=== PATIENT | female | born 1950 | race Caucasian/White ===

== ENCOUNTER 2020-04-07 15:19 | Emergency (ER) | payer OTHER ==
[~2020-04-07] VITALS: Ht 167.6 cm; Wt 68.0 kg
[~2020-04-07 15:19] MED LIST: FLUO10 PO; INSUASPI SC; LEVEMIR100 UNIT/1 SC; LORA.5 PO; MULVITMIND PO
[2020-04-07] MEDS ORDERED: METF500 PO (15:34)
[2020-04-07] MEDS ORDERED: Percocet 5-3251 EACH PO (17:22)
== END 2020-04-07 18:12 | disposition home or self-care (01) ==
LOC: ER 15:19
DX: S52.502A Unspecified fracture of the lower end of left radius, initial encounter for closed fracture (principal); S52.512A Displaced fracture of left radial styloid process, initial encounter for closed fracture; E11.9 Type 2 diabetes mellitus without complications; Z79.4 Long term (current) use of insulin; Z88.0 Allergy status to penicillin; Z88.2 Allergy status to sulfonamides; Z79.899 Other long term (current) drug therapy; Z87.891 Personal history of nicotine dependence; W23.0XXA Caught, crushed, jammed, or pinched between moving objects, initial encounter
CPT/HCPCS: 25605; 73100; 73110; 99283-25; A9270

== ENCOUNTER 2020-04-11 07:41 | Day surgery (SDC) | payer OTHER ==
[~2020-04-11] VITALS: Ht 167.6 cm; Wt 66.3 kg
[~2020-04-11 07:41] MED LIST changes: +METF500 PO; +Percocet 5-3251 EACH PO
--- NOTE | 2020-04-11 09:14 | NUR ---
04/11/20 0914 AVRIL LEON Philippe NOTED AT 302, DR. OVIEDO AND NOTIFIED, VERBAL ORDER OBTAINED BY DR. LUCIO FOR 5 UNITS HUMULIN R SUB Q X1, MEDICATION ADMINISTERED PER ORDERS
--- NOTE | 2020-04-11 10:06 | NUR ---
04/11/20 1006 Frannie Marques CHEM BG AT [address] LUCIO AWARE. NO ACTION TAKEN AT THIS TIME.
== END 2020-04-11 12:48 | disposition home or self-care (01) ==
LOC: ORSCSDS 07:41
PROVIDERS: Orthopaedic Surgery
PROC: 01N50ZZ Release Median Nerve, Open Approach (ICD-10-PCS; principal; 2020-04-11 09:15)
PROC: 0PSJ04Z Reposition Left Radius with Internal Fixation Device, Open Approach (ICD-10-PCS; principal; 2020-04-11 09:15)
DX: S52.572A Other intraarticular fracture of lower end of left radius, initial encounter for closed fracture (principal); G56.02 Carpal tunnel syndrome, left upper limb; E11.9 Type 2 diabetes mellitus without complications; E03.9 Hypothyroidism, unspecified; Z79.4 Long term (current) use of insulin; Z79.84 Long term (current) use of oral hypoglycemic drugs; Z79.899 Other long term (current) drug therapy
CPT/HCPCS: 82947; A9270; C1713; J0690; J1815; J2250; J2370; J2405; J2704; J3010; J7120

== ENCOUNTER 2021-01-09 09:21 | Day surgery (SDC) | payer OTHER ==
[~2021-01-09] VITALS: Ht 167.6 cm; Wt 64.2 kg
--- NOTE | 2021-01-09 09:40 | NUR ---
01/09/21 0940 Ashlyn Bangura TETRACAINE IN RIGHT EYE AT 0928 AND PLEDGET APPLIED IN AT 0930
[2021-01-09] MEDS ORDERED: LEVSOD25 PO (09:44)
[2021-01-17] MEDS ORDERED: NOVOLOG100 UNIT/3 (07:54)
[2021-01-17] MEDS ORDERED: Voltaren100 GM TOP (07:54)
[2021-01-17] MEDS ORDERED: INSULANI SC (07:54)
[2021-01-17] MEDS ORDERED: MELO7.5 PO (07:55)
== END 2021-01-09 11:03 | disposition home or self-care (01) ==
LOC: ORSCSDS 09:21
PROVIDERS: Ophthalmology
PROC: 08RJ3JZ Replacement of Right Lens with Synthetic Substitute, Percutaneous Approach (ICD-10-PCS; principal; 2021-01-09 12:15)
DX: H25.11 Age-related nuclear cataract, right eye (principal); E11.9 Type 2 diabetes mellitus without complications; F41.8 Other specified anxiety disorders; Z87.891 Personal history of nicotine dependence; B19.20 Unspecified viral hepatitis C without hepatic coma; K21.9 Gastro-esophageal reflux disease without esophagitis; Z79.4 Long term (current) use of insulin; Z79.899 Other long term (current) drug therapy
CPT/HCPCS: 82947; J2001; J2250; J3010; J3301; J7040; V2632

== ENCOUNTER 2021-01-23 11:28 | Day surgery (SDC) | payer OTHER ==
[~2021-01-23] VITALS: Ht 167.6 cm; Wt 63.7 kg
[~2021-01-23 11:28] MED LIST changes: +INSULANI SC; +LEVSOD25 PO; +MELO7.5 PO; +NOVOLOG100 UNIT/3; +Voltaren100 GM TOP
--- NOTE | 2021-01-23 13:25 | NUR ---
01/23/21 7920 VALENTÍN SALAZAR DID VERY WELL. VERY NICE AND POLITE LADY.
== END 2021-01-23 13:00 | disposition home or self-care (01) ==
LOC: ORSCSDS 11:28
PROVIDERS: Ophthalmology
PROC: 08RK3JZ Replacement of Left Lens with Synthetic Substitute, Percutaneous Approach (ICD-10-PCS; principal; 2021-01-23 13:00)
DX: H25.12 Age-related nuclear cataract, left eye (principal); K21.9 Gastro-esophageal reflux disease without esophagitis; E11.9 Type 2 diabetes mellitus without complications; F41.8 Other specified anxiety disorders; Z87.891 Personal history of nicotine dependence; Z79.84 Long term (current) use of oral hypoglycemic drugs; Z79.899 Other long term (current) drug therapy
CPT/HCPCS: 82947; J2001; J2250; J3010; J3301; J7040; V2632

== ENCOUNTER 2021-09-11 09:33 | Emergency (ER) | payer OTHER ==
[~2021-09-11] VITALS: Ht 167.6 cm; Wt 66.2 kg
[2021-09-11 10:36] LABS: BASOPHILS ABSOLUTE AUTO 0.01 K/mm3 (0.00-0.23); BASOPHILS PERCENT AUTO 0 % (0-2); EOSINOPHILS ABSOLUTE AUTO 0.05 K/mm3 (0.00-0.68); EOSINOPHILS PERCENT AUTO 2 % (0-6); Hematocrit 28.3 % (33.0-51.0); Hemoglobin 9.5 g/dL (11.5-16.0); Mean Corpuscular HGB 31.5 pg (26.0-34.0); Mean Corpuscular HGB Conc 33.6 g/dL (31.5-36.5); Mean Corpuscular Volume 94 fL (80-100); Mean Platelet Volume 10.6 fL (9.1-12.4); Platelet Count 107 K/mm3 (150-400); RDW Coefficient Variation 12.8 % (11.7-14.2); RDW Standard Deviation 41.5 fL (35.1-46.3); Red Blood Cell Count 3.02 M/mm3 (3.80-5.20); White Blood Cell Count 2.58 K/mm3 (4.00-11.30)
[2021-09-11 11:01] LABS: Alanine Aminotransfer (ALT/SGP 33 U/L (12-78); Albumin, Blood 2.7 g/dL (3.4-5.0); Albumin/Globulin Ratio 0.7 (0.8-1.8); Alk Phos 114 U/L (50-136); Anion Gap 7 mmol/L (6-16); Aspartate Aminotrans (AST/SGOT 34 U/L (12-37); Bilirubin, Total 0.6 mg/dL (0.1-1.0); Blood Urea Nitrogen 12 mg/dL (8-24); Bun/Creatinine Ratio 16.2 (12.0-20.0); CO2, Blood 25 mmol/L (21-32); Calcium, Blood 8.4 mg/dL (8.5-10.1); Chloride, Blood 101 mmol/L (98-108); Creatinine, Blood 0.74 mg/dL (0.40-1.00); Globulin, Blood 4.1 g/dL (2.2-4.0); Glomerular Filtration Rate >60 (60-); Glucose, Blood 253 mg/dL (70-99); IMMATURE GRAN ABSOLUTE AUTO 0.03 K/mm3 (0.00-0.10); IMMATURE GRAN PERCENT AUTO 1 % (0-1); LYMPHOCYTES ABSOLUTE AUTO 0.53 K/mm3 (0.84-5.20); LYMPHOCYTES PERCENT AUTO 21 % (21-46); MONOCYTES ABSOLUTE AUTO 1.46 K/mm3 (0.16-1.47); MONOCYTES PERCENT AUTO 57 % (4-13); NEUTROPHILS PERCENT AUTO 19 % (41-73); Potassium, Blood 4.2 mmol/L (3.5-5.5); Sodium, Blood 133 mmol/L (136-145); Total Protein, Blood 6.8 g/dL (6.4-8.2)
[2021-09-11] MEDS ORDERED: LOSA25 PO (11:38)
[2021-09-11] MEDS ORDERED: ATOR10 PO (11:39)
[2021-09-11] MEDS ORDERED: VIT1CAPS12 (11:39)
[2021-09-11 16:46] LABS: Influenza A, PCR NEGATIVE (NEGATIVE); Influenza B, PCR NEGATIVE (NEGATIVE); Resp Syncytial Virus, PCR NEGATIVE (NEGATIVE); SARS-Cov-2 (COVID-19) PCR, MMC NEGATIVE (NEGATIVE)
== END 2021-09-11 15:41 | disposition home or self-care (01) ==
LOC: ER 09:33
PROVIDERS: Emergency Medicine; Physician Assistant
DX: R55 Syncope and collapse (principal); S41.111A Laceration without foreign body of right upper arm, initial encounter; K92.2 Gastrointestinal hemorrhage, unspecified; D64.9 Anemia, unspecified; W10.9XXA Fall (on) (from) unspecified stairs and steps, initial encounter; Z88.0 Allergy status to penicillin; Z88.8 Allergy status to other drugs, medicaments and biological substances; Z88.2 Allergy status to sulfonamides; Z79.899 Other long term (current) drug therapy; Z79.4 Long term (current) use of insulin; Z79.84 Long term (current) use of oral hypoglycemic drugs; Z87.891 Personal history of nicotine dependence
CPT/HCPCS: 0241U; 36415; 70450; 80053; 84484; 85025; 86850; 86900; 86901; 93005; 93010; 96374; 99285-25; C9113

== ENCOUNTER 2021-09-29 18:29 | Observation (INO) | payer OTHER ==
[~2021-09-29] VITALS: Ht 167.6 cm; Wt 65.2 kg
[~2021-09-29 18:29] MED LIST changes: -BENADRYL25 M1 PO; -HARVONI 90-4001 EAC1 PO; -PANT20 PO
[2021-09-29 19:05] LABS: Hemoglobin 7.5 g/dL (11.5-16.0); Mean Platelet Volume 9.9 fL (9.1-12.4); Platelet Count 120 K/mm3 (150-400); White Blood Cell Count 6.37 K/mm3 (4.00-11.30)
[2021-09-29 19:38] LABS: Alanine Aminotransfer (ALT/SGP 17 U/L (12-78); Albumin, Blood 2.1 g/dL (3.4-5.0); Albumin/Globulin Ratio 0.3 (0.8-1.8); Alk Phos 79 U/L (50-136); Anion Gap 5 mmol/L (6-16); Aspartate Aminotrans (AST/SGOT 31 U/L (12-37); Bilirubin, Total 1.1 mg/dL (0.1-1.0); Blood Urea Nitrogen 15 mg/dL (8-24); Bun/Creatinine Ratio 18.3 (12.0-20.0); CO2, Blood 23 mmol/L (21-32); Calcium, Blood 7.9 mg/dL (8.5-10.1); Chloride, Blood 99 mmol/L (98-108); Creatinine, Blood 0.82 mg/dL (0.40-1.00); Globulin, Blood 6.7 g/dL (2.2-4.0); Glomerular Filtration Rate >60 (60-); Glucose, Blood 120 mg/dL (70-99); Potassium, Blood 4.5 mmol/L (3.5-5.5); Sodium, Blood 127 mmol/L (136-145); Total Protein, Blood 8.8 g/dL (6.4-8.2)
[2021-09-29 19:45] LABS: Hematocrit 21.2 % (33.0-51.0); IMMATURE GRAN ABSOLUTE AUTO 0.58 K/mm3 (0.00-0.10); IMMATURE GRAN PERCENT AUTO 9 % (0-1); Mean Corpuscular HGB 35.5 pg (26.0-34.0); Mean Corpuscular HGB Conc 35.4 g/dL (31.5-36.5); Mean Corpuscular Volume 101 fL (80-100); Red Blood Cell Count 2.11 M/mm3 (3.80-5.20)
[2021-09-29 19:46] LABS: BAND PERCENT MAN 5 % (0-8); BASOPHILS PERCENT MAN 0 % (0-2); EOSINOPHILS PERCENT MAN 0 % (0-6); LYMPHOCYTES % ATYPICAL MANUAL 2 % (0-0); LYMPHOCYTES ABSOLUTE MAN 0.89 K/mm3 (0.84-5.20); LYMPHOCYTES PERCENT MAN 12 % (21-46); METAMYELOCYTE ABSOLUTE MAN 0.25 K/mm3 (0.00-0.00); METAMYELOCYTE PERCENT MAN 4 % (0-0); MONOCYTES PERCENT MAN 8 % (4-13); MYELOCYTE ABSOLUTE MAN 0.44 K/mm3 (0.00-0.00); MYELOCYTE PERCENT MAN 7 % (0-0); PROMYELOCYTE ABSOLUTE MAN 0.06 K/mm3 (0.00-0.00); PROMYELOCYTE PERCENT MAN 1 % (0-0); SEG NEUTROPHILS PERCENT MAN 61 % (41-73); TOTAL CELLS COUNTED 100
[2021-09-29] MEDS ORDERED: HARVONI 90-4001 EAC1 PO (23:16)
[2021-09-29] MEDS ORDERED: BENADRYL25 M1 PO (23:17)
[2021-09-30 00:13] LABS: Hematocrit 19.8 % (33.0-51.0); Hemoglobin 6.9 g/dL (11.5-16.0)
[2021-09-30 02:44] LABS: Influenza A, PCR NEGATIVE (NEGATIVE); Influenza B, PCR NEGATIVE (NEGATIVE); Resp Syncytial Virus, PCR NEGATIVE (NEGATIVE); SARS-Cov-2 (COVID-19) PCR, MMC NEGATIVE (NEGATIVE)
[2021-09-30 05:26] LABS: Hematocrit 20.7 % (33.0-51.0); Mean Corpuscular HGB 33.8 pg (26.0-34.0); Mean Corpuscular HGB Conc 33.8 g/dL (31.5-36.5); Mean Corpuscular Volume 100 fL (80-100); Mean Platelet Volume 9.9 fL (9.1-12.4); Platelet Count 121 K/mm3 (150-400); RDW Coefficient Variation 18.6 % (11.7-14.2); RDW Standard Deviation 44.1 fL (35.1-46.3); Red Blood Cell Count 2.07 M/mm3 (3.80-5.20); White Blood Cell Count 7.33 K/mm3 (4.00-11.30)
[2021-09-30 05:38] LABS: International Normalized Ratio 1.3; Prothrombin Time Results 13.4 Sec (9.7-11.5)
[2021-09-30 06:11] LABS: Alanine Aminotransfer (ALT/SGP 15 U/L (12-78); Albumin, Blood 1.9 g/dL (3.4-5.0); Albumin/Globulin Ratio 0.3 (0.8-1.8); Alk Phos 73 U/L (50-136); Anion Gap 6 mmol/L (6-16); Aspartate Aminotrans (AST/SGOT 31 U/L (12-37); Bilirubin, Total 1.1 mg/dL (0.1-1.0); Blood Urea Nitrogen 12 mg/dL (8-24); Bun/Creatinine Ratio 15.1 (12.0-20.0); CO2, Blood 22 mmol/L (21-32); Calcium, Blood 7.4 mg/dL (8.5-10.1); Chloride, Blood 102 mmol/L (98-108); Globulin, Blood 6.1 g/dL (2.2-4.0); Glomerular Filtration Rate >60 (60-); Potassium, Blood 4.3 mmol/L (3.5-5.5); Sodium, Blood 130 mmol/L (136-145)
[2021-09-30 06:12] LABS: Glucose, Blood 45 mg/dL (70-99)
--- NOTE | 2021-09-30 08:09 | NUR ---
Rn summary: Patient is alert and oriented. Pt oriented and settled into room. Patient had a decub on her coccyx, states it is not from lying in bed, she states she has a " cristiane butt". Wound cleaned, mepilex applied. Pt does c/o some pain along her left side, back muscles to her shoulder. She does not take pain meds for that. Pt has not had any bloody stools reported since admit. Lungs are clear. Tele shows SR rate 97. This am at 0615 report of blood sugar of 45 received. Pt given jello and juice, tolerated well. Repeat finger stick was 91 at 0645. Plan is for colonoscopy this evening. Pt medicated with ativan 0.5mg for anxiety and muscle pain. Pt was able to rest between inturruptions. Dr. Saeed was notified that pt had a difficult blood type to cross match to. It is a special send out and will most likely be a high risk infusion. Oncoming shift notified. Pt may need follow with director social for help with who has a brain mass.
--- NOTE | 2021-09-30 17:53 | NUR ---
SHIFT SUMMARY PATIENT IS AOX4, AMBULATES SBA TO THE BATHROOM. HERE FOR GI BLEED, GO CELSO STARTED @ 0830, FOR COLONOSCOPY. NOTIFIED DR. RICHARDSON @ NOON OF CLEAR STOOLS. PATIENT MADE NPO FOR PROCEDURE. CBG CHECK AT 1630 WAS 31, DR. FIELDS NOTIFIED. NEW ORDERS FOR D50 1AMP NOW. PHARMACY CORRECTED DUE TO SHORTAGE. MEDICATION GIVEN, RECHECK WAS 107. PATIENT TAKEN TO PROCEDURE @1745. PATIENT IS PLEASANT AND COOPERATIVE WITH CARE.
--- NOTE | 2021-09-30 17:55 | NUR ---
PT TRANSFERED TO [facility] FROM FLOOR. History, Chart, Medications and Allergies reviewed before start of procedure. Lungs clear T/O to Auscultation. Patient confirms NPO status and agrees with scheduled surgery. Pre-Op teaching done. Pt verbalizes understanding.
--- NOTE | 2021-09-30 18:04 | NUR ---
09/30/21 1804 TABITHA MARTIN History, Chart, Medications and Allergies reviewed before start of procedure. Patient confirms NPO status and agrees with scheduled surgery. 3-LEAD EKG REVIEWED WITH PHYSICIAN PRIOR TO START OF PROCEDURE. MONITOR INTACT WITH CONTINUOUS PULSE OXIMETRY AND INTERMITTENT BP. PATIENT DETERMINED TO BE ASA APPROPRIATE FOR PROPOFOL SEDATION PRIOR TO START OF PROCEDURE BY DR. RICHARDSON. 02 VIA POM
--- NOTE | 2021-10-01 06:33 | NUR ---
PT HAD VERY SMALL GELATINOUS STOOL WITH A SMALL OF BLOOD IN IT THIS AM.
[2021-10-01] MEDS ORDERED: PANT20 PO (12:16)
--- NOTE | 2021-10-01 19:47 | NUR ---
SUSPECTED BLOOD TRANSFUSION REACTION: LATE ENTRY: 1555 PATIENT AT HIGHER RISK FOR BLOOD TRANSFUSION. THEREFORE, INCREASED VITALS FREQUENCY. PATIENT HAD A TEMPERATURE OF 100.8. OTHER VITALS STABLE. PATIENT DENIES CHEST PAIN, SHORTNESS OR BREATH, FLANK PAIN, DIZZINESS, OR OTHER DISCOMFORT. NO CHANGES TO PATIENT NEURO STATUS. NO CHANGES TO PATIENT'S SKIN (NO RASH, BRUISING, OR SMALL RED DOTS ON SKIN). NOTIFIED DR. FIELDS. TRANSFUSION STOPPED AND PATIENT MEDICATED WITH TYLENOL. SUSPECTED TRANSFUSION REACTION PROTOCOL COMPLETED. REMAINING BLOOD DELIVERED TO BLOOD BANK. BEFORE PATIENT'S TEMPERATURE CAME DOWN, THE PATIENT'S TEMPERATURE INCREASED TO 101.1. VITALS CONTINUED TO BE STABLE. UPDATED DR. FIELDS PERIODICALLY. FLUIDS ORDERED AND HUNG FOR PATIENT. PATIENT CONTINUED TO HAVE STABLE VITALS, NO CHANGES TO NEURO OR INTEGUMENTARY SYSTEM AND TO BE ABLE TO VOID. BY THE END OF THE SHIFT, PATIENT'S TEMPERATURE TO 98.9.
--- NOTE | 2021-10-01 19:52 | NUR ---
END OF SHIFT SUMMARY/DISCHARGE SUMMARY: PATIENT PAIN/DISCOMFORT CONTROLLED WITH LIDOCAINE PATCHES AND TYLENOL. PATIENT DENIED NAUSEA/VOMITING. PATIENT CONTINUES TO HAVE DIARRHEA. NO BLOOD IN STOOL NOTED. PATIENT TOLERATED SOME OF HER DINNER. PATIENT TRANSFUSED PART OF ONE UNIT OF BLOOD TODAY. SUSPECTED TRANSFUSION REACTION (SEE NURSE'S NOTE). VITALS CONTINUED TO BE STABLE AND PATIENT'S TEMPERATURE DOWN TO 98.9 BY THE END OF SHIFT. PATIENT REPORTED THAT SHE WAS NOT GOING TO STAY ANOTHER NIGHT IN THE HOSPITAL. DR. FIELDS NOTIFIED. PATIENT MONITORED FOR THE REST OF THE SHIFT AND DISCHARGED IN THE EVENING. DISCHARGE RX FAXED TO [facility] PER PATIENT REQUEST. DISCHARGE EDUCATION AND INSTRUCTIONS PROVIDED TO PATIENT AND HER FRIEND. ALL QUESTIONS AND CONCERNS ADDRESSED. PATIENT DISCHARGED IN WHEELCHAIR WITH CERTIFIED TECHNICIAN SPECIALIST. PATIENT STABLE AT TIME OF DISCHARGE. PATIENT REPORTS CAREGIVER FATIGUE AND LACK OF SLEEP. PATIENT EXPRESSES HIGH LEVELS OF FRUSTRATION AND ANXIETY IN REGARDS TO HER 'S SITUATION AND DIFFICULTY CARING FOR (TERMINAL BRAIN CANCER). PATIENT HAS A STRONG SUPPORT SYSTEM OF FRIENDS AND FAMILY.
== END 2021-10-01 19:45 | disposition home or self-care (01) ==
LOC: ER 18:29 → MEDS 18:30
PROVIDERS: Internal Medicine Gastroenterology; Student in an Organized Health Care Education/Training Program; ADMIT Internal Medicine
PROC: 0DBP8ZX Excision of Rectum, Via Natural or Artificial Opening Endoscopic, Diagnostic (ICD-10-PCS; principal; 2021-09-30 15:45)
DX: K60.2 Anal fissure, unspecified (principal); K62.5 Hemorrhage of anus and rectum; K64.4 Residual hemorrhoidal skin tags; D50.0 Iron deficiency anemia secondary to blood loss (chronic); E11.9 Type 2 diabetes mellitus without complications; E87.1 Hypo-osmolality and hyponatremia; I10 Essential (primary) hypertension; E03.9 Hypothyroidism, unspecified; K74.69 Other cirrhosis of liver; B19.20 Unspecified viral hepatitis C without hepatic coma; F41.9 Anxiety disorder, unspecified; E78.5 Hyperlipidemia, unspecified; Z79.4 Long term (current) use of insulin; Z87.891 Personal history of nicotine dependence; Z88.0 Allergy status to penicillin; Z88.2 Allergy status to sulfonamides; Z88.8 Allergy status to other drugs, medicaments and biological substances
CPT/HCPCS: 0241U; 36415; 36430; 80053; 82272; 82947; 85014; 85018; 85025; 85027; 85610; 86850; 86870; 86900; 86901; 86902; 86920; 88305; 96374; 96376; 97165; 99285-25; A9270; C9113; G0378; J1815; J2250; J2704; J7030; J7040; J7060; J7120; P9016

== ENCOUNTER → 2021-09-29 | Outpatient (CLI) | payer OTHER ==
[~2021-09-29] MED LIST changes: +ATOR10 PO; +BENADRYL25 M1 PO; +HARVONI 90-4001 EAC1 PO; +Hair, Skin & N1 EACH PO; +LOSA50 PO; -MULVITMIND PO; +PANT20 PO; +VIT1CAPS12 PO
== END | disposition home or self-care (01) ==
LOC: LAB SHORT 17:21
DX: L08.9 Local infection of the skin and subcutaneous tissue, unspecified (principal)
CPT/HCPCS: 87070; 87077; 87186; 87205

== ENCOUNTER 2021-10-03 17:07 | Emergency (ER) | payer OTHER ==
[~2021-10-03] VITALS: Ht 170.2 cm; Wt 68.0 kg
[~2021-10-03 17:07] MED LIST changes: +BENADRYL25 M1 PO; +HARVONI 90-4001 EAC1 PO; +PANT20 PO
[2021-10-03 18:15] LABS: Hematocrit 19.8 % (33.0-51.0); Hemoglobin 7.2 g/dL (11.5-16.0); Mean Corpuscular HGB Conc 36.4 g/dL (31.5-36.5); Mean Corpuscular Volume 99 fL (80-100); Platelet Count 91 K/mm3 (150-400); RDW Coefficient Variation 19.6 % (11.7-14.2); RDW Standard Deviation 44.5 fL (35.1-46.3); White Blood Cell Count 11.95 K/mm3 (4.00-11.30)
[2021-10-03 19:17] LABS: BAND PERCENT MAN 6 % (0-8); BASOPHILS PERCENT MAN 0 % (0-2); EOSINOPHILS ABSOLUTE MAN 0.11 K/mm3 (0.00-0.68); EOSINOPHILS PERCENT MAN 1 % (0-6); LYMPHOCYTES % ATYPICAL MANUAL 3 % (0-0); LYMPHOCYTES ABSOLUTE MAN 1.31 K/mm3 (0.84-5.20); LYMPHOCYTES PERCENT MAN 8 % (21-46); METAMYELOCYTE ABSOLUTE MAN 0.11 K/mm3 (0.00-0.00); METAMYELOCYTE PERCENT MAN 1 % (0-0); MONOCYTES ABSOLUTE MAN 0.59 K/mm3 (0.16-1.47); MONOCYTES PERCENT MAN 5 % (4-13); NEUTROPHILS ABSOLUTE MAN 9.79 K/mm3 (1.96-9.15); SEG NEUTROPHILS PERCENT MAN 76 % (41-73); TOTAL CELLS COUNTED 100
[2021-10-03 19:20] LABS: Alanine Aminotransfer (ALT/SGP 19 U/L (12-78); Albumin, Blood 1.8 g/dL (3.4-5.0); Albumin/Globulin Ratio 0.3 (0.8-1.8); Alk Phos 86 U/L (50-136); Anion Gap 10 mmol/L (6-16); Aspartate Aminotrans (AST/SGOT 40 U/L (12-37); Blood Urea Nitrogen 15 mg/dL (8-24); Bun/Creatinine Ratio 18.1 (12.0-20.0); CO2, Blood 19 mmol/L (21-32); Calcium, Blood 8.8 mg/dL (8.5-10.1); Chloride, Blood 96 mmol/L (98-108); Creatinine, Blood 0.83 mg/dL (0.40-1.00); Glomerular Filtration Rate >60 (60-); Glucose, Blood 199 mg/dL (70-99); Potassium, Blood 4.8 mmol/L (3.5-5.5); Sodium, Blood 125 mmol/L (136-145); Total Protein, Blood 8.8 g/dL (6.4-8.2)
== END 2021-10-04 00:37 | disposition home or self-care (01) ==
LOC: ER 17:07
PROVIDERS: Physician Assistant
DX: D64.9 Anemia, unspecified (principal); R53.1 Weakness; Z88.0 Allergy status to penicillin; Z88.2 Allergy status to sulfonamides; Z88.8 Allergy status to other drugs, medicaments and biological substances; Z79.899 Other long term (current) drug therapy; Z79.84 Long term (current) use of oral hypoglycemic drugs; Z79.4 Long term (current) use of insulin; Z87.891 Personal history of nicotine dependence
CPT/HCPCS: 80053; 83690; 85025; 96365; 96375; 96376; 99283; J1750; J2270; J2405

== ENCOUNTER 2021-10-07 22:09 | Inpatient (IN) | payer OTHER ==
[~2021-10-07] VITALS: Ht 167.6 cm; Wt 75.2 kg
[2021-10-07 23:24] LABS: Hematocrit 18.2 % (33.0-51.0); Hemoglobin 6.5 g/dL (11.5-16.0); Mean Corpuscular HGB 35.7 pg (26.0-34.0); Mean Corpuscular HGB Conc 35.7 g/dL (31.5-36.5); Mean Corpuscular Volume 100 fL (80-100); Mean Platelet Volume 10.3 fL (9.1-12.4); NRBC ABSOLUTE 0.05 K/mm3 (0.00-0.02); NRBC Auto 0.9 /100 WBC (0.0-0.2); Platelet Count 81 K/mm3 (150-400); RDW Coefficient Variation 18.9 % (11.7-14.2); RDW Standard Deviation 47.8 fL (35.1-46.3); Red Blood Cell Count 1.82 M/mm3 (3.80-5.20); White Blood Cell Count 5.72 K/mm3 (4.00-11.30)
[2021-10-07 23:39] LABS: Albumin, Blood 1.7 g/dL (3.4-5.0); Albumin/Globulin Ratio 0.2 (0.8-1.8); Bilirubin, Total 1.1 mg/dL (0.1-1.0); Bun/Creatinine Ratio 32.9 (12.0-20.0); Calcium, Blood 8.8 mg/dL (8.5-10.1); Creatinine, Blood 1.43 mg/dL (0.40-1.00); Globulin, Blood 6.8 g/dL (2.2-4.0); Potassium, Blood 6.4 mmol/L (3.5-5.5); Total Protein, Blood 8.5 g/dL (6.4-8.2)
[2021-10-07 23:53] LABS: Source, Urine Foley catheter
[2021-10-08 00:06] LABS: Bilirubin, Urine Neg (Neg); Blood, Urine 1+ (Neg); Glucose Qualitative, Urine Neg (Neg); Ketones, Urine 1+ (Neg); Leukocyte Esterase, Urine Neg (Neg); Nitrite, Urine Neg (Neg); Protein, Urine 2+ (Neg); Urobilinogen, Urine NORM (Normal)
[2021-10-08 00:12] LABS: BAND PERCENT MAN 13 % (0-8); BASOPHILS PERCENT MAN 0 % (0-2); EOSINOPHILS PERCENT MAN 0 % (0-6); LYMPHOCYTES PERCENT MAN 21 % (21-46); METAMYELOCYTE ABSOLUTE MAN 0.05 K/mm3 (0.00-0.00); METAMYELOCYTE PERCENT MAN 1 % (0-0); MONOCYTES ABSOLUTE MAN 0.85 K/mm3 (0.16-1.47); MONOCYTES PERCENT MAN 15 % (4-13); MYELOCYTE ABSOLUTE MAN 0.11 K/mm3 (0.00-0.00); MYELOCYTE PERCENT MAN 2 % (0-0); NEUTROPHILS ABSOLUTE MAN 3.48 K/mm3 (1.96-9.15); SEG NEUTROPHILS PERCENT MAN 48 % (41-73); TOTAL CELLS COUNTED 100
[2021-10-08 00:56] LABS: Appearance, Urine Clear (Clear); Color, Urine Yellow (P-Yellow)
[2021-10-08 00:57] LABS: Amorphous Light (0-Heavy); Bacteria Rare /hpf; Red Blood Cells, Urine 0-2 /hpf (0-2); Squamous Epithelial Cells Rare /hpf (Few); White Blood Cells, Urine Not Seen /hpf (0-5)
--- NOTE | 2021-10-08 03:34 | NUR ---
PT RECEIVED FROM ED AT 0206, EYES OPEN BUT SNORING. PT DIFFICULT TO AROUSE. NURSE STATES HE JUST GAVE PATIENT DILAUDID FOR C/O PAIN, SHE HAD ALSO HAD THE BENADRYL PROPHYLACTICALLY FOR THE BLOOD TRANSFUSION. PT COOL,DIAPHORETIC AND CLAMMY. PT WITH GOOD LUNG SOUNDS, HEART TONES BOUNDING, PULSES PALP X 4, ABD ROUND, TAUT, NO BOWEL SOUNDS HEARD. BLOOD AT EDGES OF PT'S LIPS. PT GIVEN POWER GLIDE IN PENELOPE BY DIEGO CLAIRE RN CHARGE NURSE. BLOOD DRAW COMPLETED, UNIT OF BLOOD STARTED WITH CONCERN FROM BLOOD BANK TO WATCH PATIENT CAREFULLY. PT CONTINUES TO BE VERY LETHARGIC AND DIFFICULT TO AROUSE. NARCAN GIVEN BY DIEGO CLAIRE RN. PT ANSWERS IN FEW WORDS. LAB CALLS WITH CRITICAL LACTIC, RESULT CALLED TO . PT CONTINUES WITH SONOROUS RESPIRATIONS. PT NOTED TO HAVE 2 QUARTER SIZED LESIONS TO HER GLUTEAL CREASE, PICTURES TAKEN. PT TOLERATING BLOOD TRANSFUSION, TEMP, RESPIRATIONS, HEART RATE WNL. BP STABLE.
--- NOTE | 2021-10-08 06:21 | NUR ---
SUMMARY: MILES CONTINUES TO BE SONOROUS. SHE IS BREATHING EASY AND UNLABORED. SHE IS MAINTAINING SATS >95%, HEART RATE LESS THAN 100, BP STABLE. ONE UNIT PRBC'S HAS BEEN TRANSFUSED. SHE CONTINUES TO BE CLAMMY AND DIAPHORETIC. SHE AWAKENS TO VOICE. NO EVIDENCE OF ACTIVE BLEEDING SINCE HER ARRIVAL. SHE CONTINUES TO BE AFEBRILE. LABS TO BE DRAWN IN ROUGHLY 45 MINUTES FOR POST TRANSFUSION H/H. WILL CONTINUE TO MONITOR, TREAT AND REPORT OFF TO NEXT SHIFT WHEN AVAILABLE.
[2021-10-08 07:21] LABS: Hematocrit 19.6 % (33.0-51.0); Hemoglobin 6.6 g/dL (11.5-16.0); Mean Corpuscular HGB 32.5 pg (26.0-34.0); Mean Corpuscular HGB Conc 33.7 g/dL (31.5-36.5); Mean Corpuscular Volume 97 fL (80-100); Mean Platelet Volume 10.3 fL (9.1-12.4); NRBC ABSOLUTE 0.07 K/mm3 (0.00-0.02); NRBC Auto 1.5 /100 WBC (0.0-0.2); Platelet Count 66 K/mm3 (150-400); RDW Coefficient Variation 15.5 % (11.7-14.2); RDW Standard Deviation 46.8 fL (35.1-46.3); Red Blood Cell Count 2.03 M/mm3 (3.80-5.20); White Blood Cell Count 4.59 K/mm3 (4.00-11.30)
[2021-10-08 07:35] LABS: Albumin, Blood 1.4 g/dL (3.4-5.0); Albumin/Globulin Ratio 0.2 (0.8-1.8); Bilirubin, Total 1.5 mg/dL (0.1-1.0); Bun/Creatinine Ratio 35.9 (12.0-20.0); Calcium, Blood 7.7 mg/dL (8.5-10.1); Creatinine, Blood 1.42 mg/dL (0.40-1.00); Potassium, Blood 5.9 mmol/L (3.5-5.5); Total Protein, Blood 7.4 g/dL (6.4-8.2)
--- NOTE | 2021-10-08 07:45 | NUR ---
ASSUMED CARE OF PT PT RESTING ON BED, AWAKENS TO VOICE. INITIALLY CONFUSED ON LOCATION UPON AWAKENING, THEN ABLE TO STATE SHES IN THE HOSPITAL. KNOWS YEAR, BUT NOT DATE. PT ALSO AWAKENS SLIGHTLY AGITATED AND YELLING OUT. PT WILL FALL BACK ASLEEP WHEN NOT INTERACTING WITH STAFF. NOC SHIFT COMPLETED 1 UNIT PRBC, H/H REMAIN STABLE, BUT DIDN'T IMPROVE WITH UNIT. NOTIFIED AND ORDERS WILL BE PLACED FOR ADDITIONAL UNIT. VITALS STABLE AT THIS TIME. SINUS RHYTHM ON THE MONITOR. PT NPO W/ IVF INFUSING.
--- NOTE | 2021-10-08 08:40 | NUR ---
DR LI NOTIFIED THAT BLOOD BANK DOESN'T HAVE A COMPATIBLE UNIT PRBC'S UNTIL TOMORROW. PT ATTEMPTED TO HAVE BM, ONLY SCANT AMOUNT OF MUCUS WAS NOTED. DID NOT APPEAR TO BE BLOOD TINGED.
[2021-10-08 09:24] LABS: BAND PERCENT MAN 13 % (0-8); BASOPHILS PERCENT MAN 0 % (0-2); BLASTS PERCENT MAN 2 % (0-0); EOSINOPHILS PERCENT MAN 0 % (0-6); LYMPHOCYTES ABSOLUTE MAN 2.06 K/mm3 (0.84-5.20); METAMYELOCYTE ABSOLUTE MAN 0.18 K/mm3 (0.00-0.00); METAMYELOCYTE PERCENT MAN 4 % (0-0); MONOCYTES ABSOLUTE MAN 0.73 K/mm3 (0.16-1.47); MONOCYTES PERCENT MAN 16 % (4-13); MYELOCYTE ABSOLUTE MAN 0.45 K/mm3 (0.00-0.00); MYELOCYTE PERCENT MAN 10 % (0-0); NEUTROPHILS ABSOLUTE MAN 1.05 K/mm3 (1.96-9.15); SEG NEUTROPHILS PERCENT MAN 10 % (41-73); TOTAL CELLS COUNTED 100
[2021-10-08 09:28] LABS: LYMPHOCYTES % ATYPICAL MANUAL 4 % (0-0); LYMPHOCYTES PERCENT MAN 41 % (21-46)
--- NOTE | 2021-10-08 11:48 | NUR ---
10/08/21 1148 Opal Manzo SEE ANESTHSIA RECORD. MAC/TIVA CARE BY .
[2021-10-08 12:31] LABS: Hematocrit 20.3 % (33.0-51.0); Hemoglobin 6.8 g/dL (11.5-16.0)
--- NOTE | 2021-10-08 12:41 | NUR ---
REASSESSMENT PT SLEEPY FROM SEDATATION FOR UPPER ENDOSCOPY, WHICH SHOWED NO BLEEDING. PT SLIGHTLY HYPOTENSIVE POST PROCEDURE WITH SYSTOLIC PRESSURES IN THE 90'S. H/H IMPROVED SLIGHTLY FROM THIS MORNING. PLAN FOR NM BLEEDING STUDY. NM REPORTS MOST LIKELY WON'T BE ABLE TO BE COMPLETED UNTIL TOMORROW. NO OTHER ACUTE CHANGES FROM PREVIOUS ASSESSMENT. SINUS RHYTHM ON THE MONITOR.
[2021-10-08 12:56] LABS: Albumin, Blood 1.4 g/dL (3.4-5.0); Anion Gap 11 mmol/L (6-16); Blood Urea Nitrogen 52 mg/dL (8-24); Bun/Creatinine Ratio 35.1 (12.0-20.0); CO2, Blood 16 mmol/L (21-32); Calcium, Blood 7.6 mg/dL (8.5-10.1); Chloride, Blood 102 mmol/L (98-108); Creatinine, Blood 1.48 mg/dL (0.40-1.00); Glomerular Filtration Rate 35 (60-); Glucose, Blood 173 mg/dL (70-99); Phosphorus, Blood 4.6 mg/dL (2.5-4.9); Sodium, Blood 129 mmol/L (136-145)
--- NOTE | 2021-10-08 16:19 | NUR ---
REASSESSMENT PT RESTING ON BED, ORIENTED TO SELF AND LOCATION. YELLS OUT FREQUENTLY AND IS ANXIOUS/AGITATED. WHEN PT IS AGITATED, HR WILL INCREASE TO 110'S, THEN SETTLE BACK DOWN TO LOW 100'S. BP'S HAVE IMPROVED POST SEDATION AND BACK TO BASELINE. PT HAD SMALL, LOOSE BLACK TARRY BM. SINUS TACH ON THE MONITOR.
[2021-10-08 17:18] LABS: Percent Saturation 84.8 % (15.0-50.0)
[2021-10-08 17:22] LABS: Hematocrit 19.7 % (33.0-51.0); Hemoglobin 6.6 g/dL (11.5-16.0)
[2021-10-08 17:37] LABS: Albumin, Blood 1.4 g/dL (3.4-5.0); Anion Gap 11 mmol/L (6-16); Blood Urea Nitrogen 48 mg/dL (8-24); CO2, Blood 15 mmol/L (21-32); Calcium, Blood 7.9 mg/dL (8.5-10.1); Chloride, Blood 104 mmol/L (98-108); Glomerular Filtration Rate 34 (60-); Glucose, Blood 172 mg/dL (70-99); Potassium, Blood 5.5 mmol/L (3.5-5.5); Sodium, Blood 130 mmol/L (136-145)
--- NOTE | 2021-10-08 18:03 | NUR ---
SHIFT SUMMARY PT IS ORIENTED TO SELF AND PLACE AND YEAR. THIS AFTERNOON PT'S BP STARTED TO DROP AND HR STARTED TO INCREASE. PT WAS STARTED ON LEVOPHED AND IS BEING TITRATED FOR MAP >65. PICC LINE TO BE PLACED. PRBC AWAITING ARRIVAL TO HOSPITAL, EARLIEST ARRIVAL IS TOMORROW PER BLOOD BANK. PT HAD UPPER SCOPE TODAY WHICH DIDN'T REVEAL ANY BLEEDING. PT DID HAVE ONE SMALL BLACK TARRY BM THIS AFTERNOON. PT TO HAVE NM TAG STUDY AROUND 0800 TOMORROW. CURRENT PLAN IS TO TAKE PT TO FORM SETTER/DRIVER TO LOOK FOR BLEEDING DUE TO DELAY OF BLOOD PRODUCTS AND NM STUDY. H/H HAD SLIGHT DROP THIS AFTERNOON. PT'S POTASSIUM LEVEL STARTING TO TREND DOWN AGAIN. MONITOR SHOWS PT TO BE IN SINUS TACH. OTHER VITALS HAVE REMAINED STABLE.
--- NOTE | 2021-10-08 19:57 | NUR ---
RECEIVED PT FROM FACILITY EXAMINER AT 1920, PT ARRIVES GROGGY BUT ANSWERING TO VOICE. RIGHT UPPER ARM PICC SITE WITH NS @ 100ML AND LEVO @ 8MCG, SITE OOZING AND REINFORCED IN FACILITY EXAMINER WITH ADDITIONAL COBAN. LEFT UPPER ARM WITH PG. RIGHT GROIN SITE, CLEAN/DRY/INTACT, BENAVIDES CATH PLACED, PT HOLLERING AT ANY MOVEMENT AND/OR TOUCH. MOUTH MOISTENED, PT STILL SPEAKING WITH MUMBLING AND NOT MAKING SENSE, SAID SHE DOES KNOW SHE IS AT THE HOSPITAL, JUST DOESN'T KNOW WHICH ONE. SISTER IS IN THE HOUSE, BROUGHT IN TO ROOM, PT REPOSITIONED WITH MUCH HOLLERING.
[2021-10-08 20:05] LABS: Source, Urine Foley catheter
[2021-10-08 20:08] LABS: Bilirubin, Urine Neg (Neg); Blood, Urine 1+ (Neg); Glucose Qualitative, Urine Neg (Neg); Ketones, Urine 1+ (Neg); Leukocyte Esterase, Urine Neg (Neg); Nitrite, Urine Neg (Neg); Protein, Urine 1+ (Neg); Urobilinogen, Urine NORM (Normal)
[2021-10-08 20:20] LABS: Appearance, Urine Clear (Clear); Color, Urine Yellow (P-Yellow)
[2021-10-08 20:21] LABS: Hyaline Casts 25-50 /lpf (0-2)
[2021-10-08 20:25] LABS: Amorphous Mod (0-Heavy); Bacteria Mod /hpf; Squamous Epithelial Cells Rare /hpf (Few)
--- NOTE | 2021-10-08 20:25 | NUR ---
MILES CONTINUES MOANING AND CRYING OUT. PT REPOSITIONED. SHE IS NOT ABLE TO SWALLOW WATER, SHE IS HAVING A HARD TIME SIPPING THROUGH THE STRAW. CALL PLACED TO FOR PAIN MEDICATION NOT ORAL. ORDERS RECEIVED.
[2021-10-08 23:51] LABS: Hematocrit 19.6 % (33.0-51.0); Hemoglobin 6.5 g/dL (11.5-16.0)
[2021-10-09 00:19] LABS: Bun/Creatinine Ratio 34.4 (12.0-20.0); Calcium, Blood 7.7 mg/dL (8.5-10.1); Creatinine, Blood 1.57 mg/dL (0.40-1.00)
--- NOTE | 2021-10-09 00:24 | NUR ---
BLOOD ARRIVED, VERIFIED WITH BLOOD BANK, TO GO SLOW YESTERDAY. PT IS ALREADY DIAPHORETIC, LABORED BREATHING AND TACHYCARDIC PRIOR TO BLOOD STARTING. TRYING TO GET HER TO COMMUNICATE HER CONCERNS. SHE CONTINUES TO JUST MOAN AND CRY OUT "MAMA". BLOOD HAS STARTED, NO CHANGES OBSERVED AT THIS TIME. WILL CONTINUE TO MONITOR CLOSELY. NOTE: NASAL CANNULA AT 2L PLACED ABOUT 2230 FOR SATS DIPPING, NOT LOWER THAN 90%.
--- NOTE | 2021-10-09 04:06 | NUR ---
MILES CONTINUES CRYING OUT AND YELLING FOR MAMA, MUMBLING INCOHERENTLY, UNABLE TO UNDERSTAND. SHE DOESN'T CONSOLE, SHE ISNT REDIRECTABLE. SHE IS MEDICATED WITH PAIN MEDS PER MAR AND PT RESTS QUIETLY. THE UNIT OF BLOOD DID TRANSFUSE WITH NO EVIDENT SEQUELAE. TEMP RISES SLIGHTLY. IV FLUIDS AT 150ML/HR, LEVO @ 10MCG. BENAVIDES WITH LAZARO RETURN. NO FURTHER CHANGES.
[2021-10-09 05:14] LABS: Hematocrit 21.3 % (33.0-51.0); Hemoglobin 7.4 g/dL (11.5-16.0); Mean Corpuscular HGB 34.3 pg (26.0-34.0); Mean Corpuscular HGB Conc 34.7 g/dL (31.5-36.5); Mean Corpuscular Volume 99 fL (80-100); Mean Platelet Volume 10.2 fL (9.1-12.4); NRBC ABSOLUTE 0.13 K/mm3 (0.00-0.02); NRBC Auto 4.3 /100 WBC (0.0-0.2); RDW Coefficient Variation 18.7 % (11.7-14.2); RDW Standard Deviation 49.8 fL (35.1-46.3); Red Blood Cell Count 2.16 M/mm3 (3.80-5.20)
--- NOTE | 2021-10-09 05:28 | NUR ---
MILES CONTINUES TO JUST YELL OUT, SHE IS NOT DIRECTABLE, WILL NOT ANSWER QUESTIONS. WHEN REMINDED SHE IS IN THE HOSPITAL AND THAT SHE NEEDS TO QUIT YELLING, SHE WILL SAY, "I KNOW". THEN SHE WILL CONTINUE TO YELL. SHE YELLS WITH TURNS, SHE YELLS WHEN SHE IS TOUCHED, SHE JUST YELLS OUT FOR NO REASON. ASKED IF SHE IS IN PAIN, ASKED IF SHE CAN USE WORDS TO TELL WHAT IS WRONG, SHE CONTINUES TO MUMBLE AND YELL OUT FOR "MAMA". SHE HAS BEEN TURNED FREQUENTLY TO KEEP HER OFF THOSE GLUTEAL CREASE WOUNDS, SHE CONTINUES TO BE DIAPHORETIC, BP STABLE ON LEVOPHED @ 10MCG, HEART RATE REMAINS 110'S. SATS >96% WITH 02 VIA NC @ 2L. BENAVIDES TO GRAVITY DRAINAGE WITH LAZARO. SHE WEIGHS MORE TODAY AND HAS THE EDEMA IN THE HANDS NOTED. BLOOD TRANSFUSED WITHOUT INCIDENT.
[2021-10-09 05:31] LABS: Platelet Count 40 K/mm3 (150-400)
[2021-10-09 06:03] LABS: Albumin, Blood 1.7 g/dL (3.4-5.0); Anion Gap 13 mmol/L (6-16); Blood Urea Nitrogen 52 mg/dL (8-24); Bun/Creatinine Ratio 33.3 (12.0-20.0); CO2, Blood 14 mmol/L (21-32); Calcium, Blood 8.1 mg/dL (8.5-10.1); Chloride, Blood 106 mmol/L (98-108); Creatinine, Blood 1.56 mg/dL (0.40-1.00); Glomerular Filtration Rate 33 (60-); Glucose, Blood 126 mg/dL (70-99); Phosphorus, Blood 4.8 mg/dL (2.5-4.9); Potassium, Blood 5.6 mmol/L (3.5-5.5); Sodium, Blood 133 mmol/L (136-145)
[2021-10-09 06:11] LABS: BAND PERCENT MAN 7 % (0-8); BASOPHILS PERCENT MAN 0 % (0-2); BLASTS PERCENT MAN 2 % (0-0); EOSINOPHILS ABSOLUTE MAN 0.03 K/mm3 (0.00-0.68); EOSINOPHILS PERCENT MAN 1 % (0-6); LYMPHOCYTES % ATYPICAL MANUAL 1 % (0-0); LYMPHOCYTES ABSOLUTE MAN 1.23 K/mm3 (0.84-5.20); LYMPHOCYTES PERCENT MAN 40 % (21-46); METAMYELOCYTE ABSOLUTE MAN 0.21 K/mm3 (0.00-0.00); METAMYELOCYTE PERCENT MAN 7 % (0-0); MONOCYTES ABSOLUTE MAN 0.39 K/mm3 (0.16-1.47); MONOCYTES PERCENT MAN 13 % (4-13); MYELOCYTE ABSOLUTE MAN 0.42 K/mm3 (0.00-0.00); MYELOCYTE PERCENT MAN 14 % (0-0); NEUTROPHILS ABSOLUTE MAN 0.63 K/mm3 (1.96-9.15); PROMYELOCYTE ABSOLUTE MAN 0.03 K/mm3 (0.00-0.00); PROMYELOCYTE PERCENT MAN 1 % (0-0); SEG NEUTROPHILS PERCENT MAN 14 % (41-73); TOTAL CELLS COUNTED 100
--- NOTE | 2021-10-09 06:50 | NUR ---
JUST SPOKE WITH JOHN, PT'S SISTER. SHE WAS ASKING HOW THE NIGHT WENT. I EXPLAINED HOW SHE HAS BEEN AND TOLD HER THAT I WAS CONSIDERING HOLDING THE PAIN MEDS TO SEE IF THAT IS WHAT IS MAKING HER ACT THIS WAY. SISTER SAID, NO! SHE HAS BEEN THIS WAY BEFORE HOSPITALIZATION. PT MEDICATED FOR PAIN PER MAR.
--- NOTE | 2021-10-09 08:47 | NUR ---
ASSUMED CARE REPORT FROM FRANK LOMAS AT 0700. PT LAYING IN BED. YELLING OUT, INCOHERANT SPEECH. UNABLE TO REDIRECT OR CALM. KEEPS EYES CLOSED. DOES NOT FOLLOW COMMANDS. YELLING INCREASES c PALPATION TO ENTIRE BODY. UNABLE TO LOCALIZE OR ASSESS PAIN. LUNGS CLEAR, 2L VIA NC, 95%. ST ON MONITOR. LEVO GTT FOR MAP >65. PT PALE, DIAPHORETIC, TEMP 100.6. ABD DISTENDED, SLIGHTLY FIRM, BT X 4. BENAVIDES PATENT, DRAINING CLEAR YELLOW URINE TO GRAVITY. RIGHT FEMORAL GROIN SITE. NO BLEEDING, SWELLING OR HEMATOMA NOTED. DRESSING C/D/I. PICC TO RUE, POWERGLIDE TO LUE. PLAN FOR NUC MED STUDY THIS SHIFT. WILL CONTINUE TO MONITOR.
[2021-10-09 10:34] LABS: Albumin, Blood 1.5 g/dL (3.4-5.0); Anion Gap 11 mmol/L (6-16); Blood Urea Nitrogen 52 mg/dL (8-24); Bun/Creatinine Ratio 31.3 (12.0-20.0); CO2, Blood 16 mmol/L (21-32); Calcium, Blood 7.4 mg/dL (8.5-10.1); Chloride, Blood 107 mmol/L (98-108); Creatinine, Blood 1.66 mg/dL (0.40-1.00); Glomerular Filtration Rate 30 (60-); Glucose, Blood 82 mg/dL (70-99); Phosphorus, Blood 4.1 mg/dL (2.5-4.9); Potassium, Blood 5.2 mmol/L (3.5-5.5); Sodium, Blood 134 mmol/L (136-145)
[2021-10-09 13:39] LABS: Hematocrit 19.5 % (33.0-51.0); Hemoglobin 7.1 g/dL (11.5-16.0)
--- NOTE | 2021-10-09 15:37 | NUR ---
Case Conference Note Pt's family has arrived. Escorted family to ICU waiting room per request from family. Offered therapetuic listening and answered questions. Reviewed current plan of care and discussed goals of care. Family reports Pt would not want a biopsy and would not want to pursue treatment for cancer. Discussed comfort care and hospice as an option. Educated on comfort care and hospice philosophy with V/U made by family. Pt's spouse agrees Pt would want comfort care and DNR status and states that he would like Pt's sister Radha to make decision. Radha reports plan for another family member to arrive from [place] tomrrow before placing Pt on comfort care. Family expresses appreciation and report no other concerns at this time. Spoke with Primary RN Annabelle and linotype worker. Relayed family's plan. Spoke with Dr Valiente and she reports she will come talk with family today. Palliative Care will remain available.
--- NOTE | 2021-10-09 17:28 | NUR ---
SHIFT SUMMARY PT TO NUC MED AND CT THIS SHIFT. CT RESULTS SHOWED SEVERE LYMPHADENOPATHY. ONCOLOGY CONSULTED. NUC MED SHOWED BLEED TO RIGHT GROIN SITE. DR DAVIES ASSESSED. HEMOSTATIS ACHIEVED c FEM STOP. FEM STOP REMOVED AFTER 30 MIN. NEURO STATUS UNCHANGED. PT CONTINUES TO INTERMITTANTLY YELL OUT. DOES NOT FOLLOW COMMANDS, NOT REDIRECTABLE. MEDICATED c FENTANYL PRN FOR PAIN. LEVO GTT CONTINUES FOR MAP >65. ST, RATE 110'S. ABD SOFT, DISTENDED, HYPOACTIVE BT. RIGHT GROIN SITE SOFT OTHER THAN PALPABLE LYMPH NODES. BENAVIDES PATENT, DRAINING TO GRAVITY. JOHN (SISTER) AND MET c DR ERAZO, DR DAVIES, PALLIATIVE AND CARE MANAGEMENT. JOHN SPOKE c DR DANIELLE ON PHONE. GOALS OF CARE CHANGED TO COMFORT. AWAITING JOHN'S DAUGHTER TOMORROW. IN THE MEANTIME, WILL CONTINUE PRESSORS AND IVF. MAKE COMFORTABLE. WILL TRANSITION TO COMFORT CARE TOMORROW. CODE STATUS CHANGED TO DNR. WILL CONTINUE TO MONITOR UNTIL REPORT TO ONCOMING NURSE.
--- NOTE | 2021-10-09 20:16 | NUR ---
RECEIVED REPORT FROM SISTER JOHN GONGORA IN ROOM. PT LYING ON HER RIGHT SIDE WITH SONOROUS RESPIRATIONS, LUNG CLEAR, O2 VIA NC @ 3L, LEVO @ 6MCG, NS @ 75ML, BENAVIDES DRAINING TO GRAVITY, ABDOMEN QUIET, RIGHT GROIN SITE WITH IMPROVEMENT IN THE SWELLING. DISCUSSED CARE WITH SISTER, PT'S TEMP CLIMBING, ICE PACKS PLACED. SON IN LAW AND ARRIVE FOR VISIT. MAP >60, WILL CONTINUE TO WATCH.
--- NOTE | 2021-10-09 21:33 | NUR ---
PT'S TEMPERATURE HAS STARTED TO COME DOWN, ICE BAGS REMAIN IN PLACE. PT HAS DECREASING SATS, O2 INCREASED TO 5L VIA NC. BLOOD PRESSURE DECREASING, MAP REMAINS ABOVE 60. HEART RATE TO 120'S.
--- NOTE | 2021-10-09 23:32 | NUR ---
MILES IS RESTING QUIETLY, SISTER SLEEPING IN CHAIR BESIDE HER. HER RESPIRATORY RATE IS DOWN TO 10-12, SATS REMAIN 92%, BP 80'S/40'S, TEMPERATURE HAS COME DOWN. TOLERATED LAST TURN WITHOUT ANY HOLLERING.
--- NOTE | 2021-10-10 02:17 | NUR ---
MILES TURNED, MOUTH CARE DONE, ICE PACKS REAPPLIED, MEDICATED FOR PAIN. MINIMAL YELLING THIS TURN. BREATHING IRREGULAR, TEMP 101.4, BP MAP=60, LEVO @ 6MCG, NS @ 75ML/HR. SISTER HAS GONE HOME FOR NOW.
--- NOTE | 2021-10-10 05:12 | NUR ---
MILES WAS TURNED AGAIN, REPOSITIONED, MINIMAL YELLING, EYES POP OPEN BUT NOT FOCUSING OR FOLLOWING VOICE. RETURNS TO SLEEP. TEMP 100.9, BP 93/49 MAP 62, RESPS 8-12, HEART RATE 108. I/O 1000/200. LEVO @ 6MCG/NS @ 75ML. MOUTH CLOSES AROUND SWABS WITH ORAL CARE. NO OTHER PURPOSEFUL MOVEMENTS. MEDICATED X 2 THIS SHIFT WITH DILAUDID. SISTER HOME FOR THE NIGHT. WILL CONTINUE CURRENT TREAT- MENT, AWAITING DAUGHTER WHO FLIES IN TODAY.
--- NOTE | 2021-10-10 07:15 | NUR ---
ASSUMED CARE REPORT FROM FRANK LOMAS AT 0700. PT RESTING IN BED. PT COMFORT CARE. PLAN TO CONTINUE LEVOPHED AND IVF UNTIL DAUGHTER ARRIVES. PT LAYING c EYES CLOSED. NOT RESPONSIVE TO VERBAL STIMULI. DOES NOT APPEAR IN DISTRESS. 5L VIA NC. ICE PACKS AND FAN IN PLACE FOR ELEVATED TEMP. WILL CONTINUE TO MONITOR.
--- NOTE | 2021-10-10 17:36 | NUR ---
Supportive F/U visit. Pt resting in bed with Pt's sister Radha at [facility]. Pt's B/P and MAP continue to drop despite pressor being given. Radha elects to stop medications in order to allow Pt to pass peacefully and comfortably. Offered emotional support for Radha as Pt passes away. Radha expresses appreciation and is agreeable for Deputy Chief Sheriff to visit. Spoke with Deputy Chief Sheriff Demar and discussed case. Palliative Care will remain available.
--- NOTE | 2021-10-10 17:40 | NUR ---
TOD BP CONTINUED TO DECLINE THROUGHOUT THIS SHIFT. LEVO AT MAX OF 20 MCG/MIN. SISTER OPTED TO STOP LEVO. LEVO PLACED ON STANDBY. PT MEDICATED FOR PAIN AND ANXIETY. TOD 1722. PT TO BE TRANSPORTED TO [facility].
--- NOTE | 2021-10-10 18:26 | NUR ---
Spiritual Care EOL Contacted by Palliative Care that Pt. had passed and that grieving sister requested spiritual care. Pts. sister welcomed me. Established rapport and facilitated a life review. Pts. sister displayed evidence of responsiblity in a very difficult family dynamic. Prayed with Pts. Sister and prayed for the Pt. Facilitated more life review. Family has chosen [facility] in [place]. Updated ICU nurse Leah.
== END 2021-10-10 17:22 | DRG 871 ==
LOC: ER 22:09 → ICUW 10-08 01:17 → ICUE 10-08 01:17
PROVIDERS: Emergency Medicine; Family Medicine; Internal Medicine Gastroenterology; ADMIT Internal Medicine
PROC: B415YZZ Fluoroscopy of Inferior Mesenteric Artery using Other Contrast (ICD-10-PCS; 2021-10-08)
PROC: B414YZZ Fluoroscopy of Superior Mesenteric Artery using Other Contrast (ICD-10-PCS; 2021-10-08)
PROC: 0DJ08ZZ Inspection of Upper Intestinal Tract, Via Natural or Artificial Opening Endoscopic (ICD-10-PCS; 2021-10-08)
PROC: 3E033XZ Introduction of Vasopressor into Peripheral Vein, Percutaneous Approach (ICD-10-PCS; 2021-10-08)
PROC: 3E03329 Introduction of Other Anti-infective into Peripheral Vein, Percutaneous Approach (ICD-10-PCS; 2021-10-08)
PROC: 06HY33Z Insertion of Infusion Device into Lower Vein, Percutaneous Approach (ICD-10-PCS; 2021-10-08)
PROC: 30233N1 Transfusion of Nonautologous Red Blood Cells into Peripheral Vein, Percutaneous Approach (ICD-10-PCS; principal; 2021-10-08 15:00)
DX: A41.9 Sepsis, unspecified organism (principal); J18.9 Pneumonia, unspecified organism; R65.21 Severe sepsis with septic shock; G92.8 Other toxic encephalopathy; K92.2 Gastrointestinal hemorrhage, unspecified; D62 Acute posthemorrhagic anemia; E87.1 Hypo-osmolality and hyponatremia; E87.2 Acidosis; N17.9 Acute kidney failure, unspecified; K62.6 Ulcer of anus and rectum; D61.818 Other pancytopenia; I97.618 Postprocedural hemorrhage of a circulatory system organ or structure following other circulatory system procedure; C85.90 Non-Hodgkin lymphoma, unspecified, unspecified site; Z51.5 Encounter for palliative care; Z66 Do not resuscitate; E11.622 Type 2 diabetes mellitus with other skin ulcer; E11.65 Type 2 diabetes mellitus with hyperglycemia; K74.60 Unspecified cirrhosis of liver; D69.6 Thrombocytopenia, unspecified; E87.5 Hyperkalemia; I95.9 Hypotension, unspecified; B19.20 Unspecified viral hepatitis C without hepatic coma; K21.9 Gastro-esophageal reflux disease without esophagitis; E78.5 Hyperlipidemia, unspecified; E03.9 Hypothyroidism, unspecified; F41.9 Anxiety disorder, unspecified; I10 Essential (primary) hypertension; R16.1 Splenomegaly, not elsewhere classified; Z88.0 Allergy status to penicillin; Z88.2 Allergy status to sulfonamides; Z88.8 Allergy status to other drugs, medicaments and biological substances; Z98.890 Other specified postprocedural states; Z79.4 Long term (current) use of insulin; Z79.899 Other long term (current) drug therapy; D63.0 Anemia in neoplastic disease
CPT/HCPCS: 36245; 36415; 36430; 36569; 51701; 71045; 71260; 74177; 75726; 76937; 78278; 80048; 80053; 80069; 81001; 82140; 82607; 82728; 82746; 82947; 83540; 83550; 83605; 83690; 84145; 84484; 85014; 85018; 85025; 86850; 86870; 86900; 86901; 86920; 87040; 87086; 93005; 93010; 96374; 96375; 99152; 99153; 99285-25; A9270; A9560; C1725; C1751; C1760; C1769; C1887; C1894; C9113; J0171; J0610; J1170; J1200; J1430; J1644; J1815; J1956; J2060; J2250; J2310; J2354; J2370; J2405; J2704; J3010; J7030; J7040; J7050; J7060; P9016; P9046; Q9967